=== PATIENT | female | born 1960 | race Caucasian/White ===

== ENCOUNTER 2024-06-15 08:35 | Day surgery (SDC) | payer MEDICARE, BC ==
[~2024-06-15 08:35] MED LIST: EPIN0.3A3 IM; PRAS6.5I VG; ROSU10TA72 PO
[2024-06-15 09:24] VITALS: BP 139/78; PULSE 81; RESP 16; TEMP 97.8
[2024-06-15] MEDS ORDERED: MIDAZolam 1 MG/ML 5ML VIAL ONE (10:13)
[2024-06-15] MEDS ORDERED: fentaNYL/PF 50MCG/1 ML 2ML syringe ONE (10:13)
[2024-06-15] MEDS ORDERED: diphenhydrAMINE 50 mg/ml inj ONE (10:14)
[2024-06-15] MEDS ORDERED: LIDOcaine 2% Viscous 15ml cup ONE (10:31)
[2024-06-15 11:34] VITALS: BP 127/70; PULSE 70; RESP 14
[2024-06-15 11:44] VITALS: BP 119/66; PULSE 70; RESP 16; O2SAT 97
[2024-06-15 11:54] VITALS: BP 117/57; PULSE 57; RESP 16; O2SAT 98
[2024-06-15 12:04] VITALS: BP 110/68; PULSE 73; RESP 16; O2SAT 97
== END 2024-06-15 12:10 | disposition home or self-care (01) ==
LOC: GI LAB 08:35
PROVIDERS: ATTEND Internal Medicine Gastroenterology
DX: Z12.11 Encounter for screening for malignant neoplasm of colon (principal); K57.30 Diverticulosis of large intestine without perforation or abscess without bleeding; R13.10 Dysphagia, unspecified; K31.7 Polyp of stomach and duodenum; K29.80 Duodenitis without bleeding; K31.89 Other diseases of stomach and duodenum; Z86.010 Personal history of colon polyps
CPT/HCPCS: 43239; 99153; G0105; G0500; J1200; J2250; J3010; J7030; Z7512; 45378; 88305; 99152